=== PATIENT | male | born 1980 | race African-American/Black ===

== ENCOUNTER 2016-11-30 14:20 | Emergency (ER) | payer BC ==
[~2016-11-30] VITALS: Ht 175.3 cm; Wt 169.3 kg
[2016-11-30 14:26] VITALS: TEMP 36.9; Ht 175.3 cm; Wt 169.3 kg
[2016-11-30] MEDS ORDERED: ALBUTEROL HFA 8 GM INHALER INH STA (15:55)
[2016-11-30] MEDS ORDERED: AMOXICILLIN/CLAVULANATE TAB 875 MG TAB PO ONE (16:00)
[2016-11-30] MEDS ORDERED: PRED50TA PO (16:02)
[2016-11-30] MEDS ORDERED: AMOX875T PO (16:02)
--- NOTE | 2016-11-30 16:03 | EMERGENCY ROOM VISIT NOTE ---
ED Visit Note First contact with patient: 15:44 Chief Complaint: Extreme Congestion, Breathing Issues History of Present Illness: Patient is a 36-year-old male who presents the emergency Department this afternoon for evaluation of his ongoing his congestion and cough. The patient has a history of asthma as well as occasional episodes of sinusitis. He has had symptoms of sinus congestion for the past week. He started using Mucinex earlier this morning with minimal relief of symptoms. He also has been using his inhaler more frequently as well. He rates his current discomfort as a 0/10. He denies any headaches, dizziness, lightheadedness, blurry vision, double vision, nausea, vomiting, or neck pain/stiffness. Medications: Albuterol Allergies: Chocolate, citrus, shellfish PMH: Asthma SHx: Patient is a 36-year-old male who lives locally. ROS: All pertinent positive and negative review of systems are appropriately documented in the History of Present Illness. Physical Exam: VITAL SIGNS - Vital signs and nursing notes were reviewed. GENERAL - Well nourished, well developed 36-year-old male in no acute distress. Pt communicates well with provider and answers questions appropriately. SKIN - Without rash. HEAD - NC/AT with no obvious deformities. EYES - PERRL with EOMI bilaterally. Sclera without injection. Palpebral conjunctiva pink and moist. EARS - No deformities of external structures noted on gross examination bilaterally. No pain elicited with palpation of the tragus bilaterally. External auditory canals without discharge or otorrhea. Tympanic membranes pearly willis without retraction or bulging. No fluid or purulent material visualized behind the TM. Handle of malleus, umbo, cone of light, pars tensa/ flaccid all easily visualized. NOSE - Midline and without cyanosis. No purulent drainage noted. Nasal mucosa with mild mucus discharge. Tenderness to palpation appreciated over the bilateral maxillary sinuses. MOUTH/OROPHARYNX - Without perioral cyanosis. Buccal mucosa pink and moist and without leukoplakia. Tongue midline with equal elevation of palate bilaterally. No tonsillar hypertrophy, erythema, or exudates noted. Good dentition noted. NECK - Neck with FROM. Supple to palpation. No lymphadenopathy noted. No nuchal rigidity. LUNGS - Chest wall symmetric without accessory muscle use, intercostals retractions, or central cyanosis. Normal vesicular breath sounds CTA B/L. No wheezes, rales, or rhonchi appreciated. CARDIAC - RRR with S1/S2. No murmur, rubs, or gallops appreciated. ED Course: Patient was seen and evaluated by myself. I had a lengthy conversation with the patient regarding his symptoms. The patient will continue to use Mucinex at home. He was provided prednisone, Augmentin, and a refill of his upper on inhaler. He was instructed to follow-up with his primary care provider from today's visit. He was educated on worrisome symptoms for return visit to the emergency department. Patient discharged home afebrile and in good condition. In the evaluation and treatment of this patient, the following differential diagnoses were considered: Meningitis, encephalitis, viral URI, allergies, amongst others. Impression: Acute Sinusitis Discharge Instructions: You've been seen in the emergency department today for a sinus infection. You were prescribed Augmentin to be taken as prescribed. This is an antibiotic. All antibiotics have the potential to cause diarrhea. Stop this medication and contact a medical provider if you were to develop any significant adverse side effects including: wheezing, shortness of breath, passing out, vomiting, or a diffuse rash. Always take antibiotics as directed and COMPLETE the ENTIRE course regardless of the improvement of your symptoms. You have been prescribed Prednisone 50 mg to be taken orally once a day for the next 4 days. This is an anti-inflammatory medicine to be used to help minimize your symptoms. You should take the COMPLETE course of the medication. Use your albuterol inhaler as needed. For pain control, you can use the following tnbm-kah-pygjvqw medicines (if >12 yo): - Regular strength (325mg/tab) Tylenol (acetaminophen) 2 tabs every 4-6 hours as needed. Do not exceed 12 tablets in a 24 hour period. Avoid taking more than 4 grams (4000 mg) of Tylenol per day. This includes any other sources of acetaminophen you may take on a regular basis. - Regular strength (200 mg/tab) Advil (ibuprofen) 1-2 tabs every 4-6 hours as needed. Do not exceed a dose of 3200 mg per day. Follow-up with your primary care provider from today's visit. Return for any changing or worsening symptoms. Problem List Medical Problems: (1) Asthma Status: Chronic Current/Historical Medications Scheduled Amoxicillin & Pot Clavulanate (Augmentin 875-125 mg), 875 MG PO BID Prednisone (Prednisone), 50 MG PO DAILY Scheduled PRN Albuterol Hfa (Ventolin Hfa), 2 PUFFS INH Q6H PRN for SOB/Wheezing Allergies Coded Allergies: Shellfish (Unverified Allergy, Severe, GI SYMPTOMS, 07/22/16) Chocolate (Verified Allergy, Intermediate, "bad" eczema-like rash, ) [place] (Verified Allergy, Intermediate, "bad" eczema-like rash, 07/22/16) Vital Signs Date Time Temp Pulse Resp B/P Pulse Ox O2 Delivery O2 Flow Rate FiO2 11/30/16 16:20 96 20 142/91 94 11/30/16 14:26 36.9 99 20 165/95 95 Room Air Medications Administered Medications (Trade) Dose Ordered Sig/Shelley Route Start Time Stop Time Status Last Admin Dose Admin Amoxicillin/ Clavulanate Potassium (Augmentin Tab) 875 mg ONE ONCE PO 11/30/16 16:00 11/30/16 16:01 DC 11/30/16 16:12 875 MG Prednisone (PredniSONE TAB) 60 mg NOW STAT PO 11/30/16 15:55 11/30/16 15:56 DC 11/30/16 16:14 60 MG Albuterol (Ventolin Hfa Inhaler) 2 puffs ONE STAT INH 11/30/16 15:55 11/30/16 15:56 DC 11/30/16 16:13 2 PUFFS Departure Information Impression Primary Impression: Sinusitis Dispostion Home / Self-Care Condition GOOD Prescriptions Prednisone (Prednisone) 50 Mg Tab 50 MG PO DAILY for 4 Days, #4 TAB Prov: Sunny Doshi PA-C 11/30/16 Amoxicillin & Pot Clavulanate (Augmentin 875-125 mg) 1 Tab Tab 875 MG PO BID for 10 Days, #20 TAB Prov: Sunny Doshi PA-C 11/30/16 Referrals No Doctor, Assigned (PCP) Patient Instructions ED Sinusitis Abx Tx, My [facility] Additional Instructions You've been seen in the emergency department today for a sinus infection. You were prescribed Augmentin to be taken as prescribed. This is an antibiotic. All antibiotics have the potential to cause diarrhea. Stop this medication and contact a medical provider if you were to develop any significant adverse side effects including: wheezing, shortness of breath, passing out, vomiting, or a diffuse rash. Always take antibiotics as directed and COMPLETE the ENTIRE course regardless of the improvement of your symptoms. You have been prescribed Prednisone 50 mg to be taken orally once a day for the next 4 days. This is an anti-inflammatory medicine to be used to help minimize your symptoms. You should take the COMPLETE course of the medication. Use your albuterol inhaler as needed. For pain control, you can use the following lauq-mwe-yhbmgwj medicines (if >12 yo): - Regular strength (325mg/tab) Tylenol (acetaminophen) 2 tabs every 4-6 hours as needed. Do not exceed 12 tablets in a 24 hour period. Avoid taking more than 4 grams (4000 mg) of Tylenol per day. This includes any other sources of acetaminophen you may take on a regular basis. - Regular strength (200 mg/tab) Advil (ibuprofen) 1-2 tabs every 4-6 hours as needed. Do not exceed a dose of 3200 mg per day. Follow-up with your primary care provider from today's visit. Return for any changing or worsening symptoms. Problem Qualifiers Primary Impression: Sinusitis Sinusitis location: maxillary Chronicity: acute Recurrence: recurrent Qualified Codes: J01.01 - Acute recurrent maxillary sinusitis
[2016-11-30 16:20] VITALS: BP 142/91; PULSE 96; O2SAT 94
[2017-05-01] MEDS ORDERED: VNTHFA/IN INH (16:01)
== END 2016-11-30 16:22 | disposition home or self-care (01) ==
LOC: C.EDB 14:21 → C.EDD 16:22
DX: J01.90 Acute sinusitis, unspecified (principal); J45.909 Unspecified asthma, uncomplicated; Z91.018 Allergy to other foods

== ENCOUNTER 2017-05-01 21:13 | Emergency (ER) | payer BC ==
[~2017-05-01] VITALS: Ht 175.3 cm; Wt 166.2 kg
[~2017-05-01 21:13] MED LIST: VNTHFA/IN INH
[2017-05-01 21:22] VITALS: BP 167/107; PULSE 96; TEMP 37.1; O2SAT 96; Ht 175.3 cm; Wt 166.2 kg
--- NOTE | 2017-05-01 22:38 | DIAGNOSTIC IMAGING REPORT ---
LEFT ANKLE 3 VIEWS HISTORY: left ankle pain, injury, hx achilles surgery COMPARISON: Left ankle 12/20/2011. FINDINGS: There is no fracture or dislocation. Mild soft tissue swelling. Diffuse thickening of the Achilles tendon. No radiopaque foreign bodies. IMPRESSION: No fracture or dislocation within the left ankle. Diffuse thickening of the Achilles tendon suggestive of a chronic tendinosis. Electronically signed by: Feliciano Quiros M.D. 05/01/2017 10:37 PM Dictated Date/Time: 05/01/2017 10:34 PM
--- NOTE | 2017-05-01 22:59 | EMERGENCY ROOM VISIT NOTE ---
ED Visit Note First contact with patient: 22:02 CHIEF COMPLAINT: Ankle pain HISTORY OF PRESENT ILLNESS: This 37-year-old male patient presents to the emergency department ambulatory complaining of left ankle pain. The patient states that he stepped on a bottle and rolled his ankle. He is concerned because he had an Achilles surgery several years ago. The patient reports pain in the back of the ankle. He states that he iced the ankle at work without relief. The pain is radiating up his leg. He rates the discomfort a 7/10. He is able to bear weight but states it is painful to do so. He denies any numbness or weakness. He denies any foot pain. REVIEW OF SYSTEMS: A 6 system review of systems was completed with positives and pertinent negatives listed in the HPI. ALLERGIES: Chocolate, citrus, shellfish MEDICATIONS: Ventolin inhaler PMH: Asthma, Achilles surgery SOCIAL HISTORY: The patient lives locally with family. PHYSICAL EXAM: Vital Signs: Reviewed Nurse's notes, vital signs stable. GENERAL : This is a 37-year-old male, no acute distress, but appears in pain, well- developed, well-nourished. MENTAL STATUS: Alert, oriented to person place and time, and cooperative. MUSCULOSKELETAL: There is no significant swelling or deformity of the left ankle. There is tenderness to palpation at the distal Achilles insertion. Full range of motion of the ankle. Plantar flexion and dorsiflexion are 5/5. There is no tenderness over the foot. There is no calf or tibia/fibular tenderness. There is no visual deformity. The foot and toes are warm and well-perfused. Dorsalis pedis pulse 2+. Sensation to pain and light touch is intact. Capillary refill less than 2 seconds. RADIOGRAPHIC FINDINGS: LEFT ANKLE 3 VIEWS HISTORY: left ankle pain, injury, hx achilles surgery COMPARISON: Left ankle 12/20/2011. FINDINGS: There is no fracture or dislocation. Mild soft tissue swelling. Diffuse thickening of the Achilles tendon. No radiopaque foreign bodies. IMPRESSION: No fracture or dislocation within the left ankle. Diffuse thickening of the Achilles tendon suggestive of a chronic tendinosis. EMERGENCY DEPARTMENT COURSE: I examined the patient. X-rays of the left ankle were reviewed by myself and read by radiology and reveal no acute findings. Patient has crutches at home and will use these until he is able to weight without difficulty. I did recommend that the patient follow-up with orthopedics this week due to his history of Achilles surgery. Conservative measures were discussed. He verbalized understanding of my assessment and treatment plan. The patient was discharged home in good condition. Medication reconciliation: I attest that I have personally reviewed the patient 's current medication list. Blood Pressure Screening: Patient was found to have a slightly elevated blood pressure due to circumstances. I do not believe that the patient requires hypertension monitoring. DIAGNOSIS: Left ankle pain Problem List Medical Problems: (1) Asthma Status: Chronic Current/Historical Medications Scheduled PRN Albuterol Hfa (Ventolin Hfa), 2 PUFFS INH Q6H PRN for SOB/Wheezing Allergies Coded Allergies: Shellfish (Unverified Allergy, Severe, GI SYMPTOMS, 07/22/16) Chocolate (Verified Allergy, Intermediate, "bad" eczema-like rash, ) [place] (Verified Allergy, Intermediate, "bad" eczema-like rash, 07/22/16) Vital Signs Date Time Temp Pulse Resp B/P (MAP) Pulse Ox O2 Delivery O2 Flow Rate FiO2 05/01/17 21:22 37.1 96 20 167/107 96 Room Air Departure Information Impression Primary Impression: Ankle injury Dispostion Home / Self-Care Condition GOOD Referrals No Doctor, Assigned (PCP) Michele Fernandez D.Rajendra. Patient Instructions My [facility] Additional Instructions You have been treated in the Emergency Department for an Ankle injury. For pain control, you can use the following tjcp-upa-hskryjt medicines (if >12 yo): - Regular strength (325mg/tab) Tylenol (acetaminophen) 2 tabs every 4-6 hours as needed. Do not exceed 12 tablets in a 24 hour period. Avoid taking more than 4 grams (4000 mg) of Tylenol per day. This includes any other sources of acetaminophen you may take on a regular basis. - Regular strength (200 mg/tab) Advil (ibuprofen) 1-2 tabs every 4-6 hours as needed. Do not exceed a dose of 3200 mg per day. If this is a recent injury (<24 hrs), ice can be applied to the area of pain for the first 3 days to help decrease pain and inflammation. You should use the crutches to keep weight off the ankle for the next 3-4 days or until you're able to bear weight without any pain. Call Dr. Fernandez to schedule follow-up if you have any pain or difficulty walking in 2-3 days. Return to the Emergency Department if your current symptoms worsen despite treatment course outlined above, or if you develop any of the following symptoms : intractable pain despite aforementioned treatment course or new onset of numbness or tingling of the foot. Problem Qualifiers Primary Impression: Ankle injury Encounter type: initial encounter Laterality: left Qualified Codes: S99.912A - Unspecified injury of left ankle, initial encounter
== END 2017-05-01 23:06 | disposition home or self-care (01) ==
LOC: C.EDB 21:16 → C.EDD 23:06
DX: S99.912A Unspecified injury of left ankle, initial encounter (principal); X50.0XXA Overexertion from strenuous movement or load, initial encounter; J45.909 Unspecified asthma, uncomplicated

== ENCOUNTER 2017-10-22 21:40 | Emergency (ER) | payer BC ==
[~2017-10-22] VITALS: Ht 175.3 cm; Wt 167.3 kg
[2017-10-22 21:44] VITALS: Ht 175.3 cm; Wt 167.3 kg
[2017-10-22] MEDS ORDERED: SODIUM CHLORIDE 0.9% 1000ML 1,000 ML IV ONE (22:03)
[2017-10-22] MEDS ORDERED: SODIUM CHLORIDE 0.9% 1000ML 1,000 ML IV STA (22:03)
--- NOTE | 2017-10-22 22:04 | EMERGENCY ROOM VISIT NOTE ---
History Report prepared by Connor: Nicola Sterling Under the Supervision of: Dr. Tomer Oneal M.D. First contact with patient: 21:52 Chief Complaint: HEADACHE Stated Complaint: POSSIBLY DEHYDRATION,HEADACHE,BLURRY VISION History of Present Illness The patient is a 37 year old male who presents to the Emergency Room with complaints of bilateral blurry vision that started 2 hours ago. He normally does not wear glasses and had difficulty looking at his work schedule on his computer screen today. He states he has a mild left sided temporal headache rated as 3/10 in severity. He denies previous episodes. The patient denies head strike, ear pain, neck pain, back pain, weight loss or gain, fevers, numbness, weakness, chest pain, SOB, and abdominal pain. He denies a history of diabetes and has not been checked for diabetes. Of note, he does not have a regular PCP that he follows up with. Source of History: patient Onset: 2 hours ago Position: head, eye (bilateral) Symptom Intensity: headache rated as 3/10 Quality: other (blurry vision) Timing: constant Associated Symptoms: + headache, No fevers, No neck pain, No chest pain, No SOB, No abdominal pain, No back pain, No weakness, No numbness Review of Systems See HPI for pertinent positives & negatives. A total of 10 systems reviewed and were otherwise negative. Past Medical & Surgical Medical Problems: (1) Asthma Surgical Problems: (1) History of left knee surgery Old medical records were reviewed. Nurse's notes were reviewed and I agree with. Family History FH: heart disease FHx: cancer FHx: hypertension FHx: lung disease No significant family history Thyroid problem Social History Smoking Status: Current Some Day Smoker Alcohol Use: occasionally Marital Status: single Housing Status: lives with family Occupation Status: employed Current/Historical Medications Scheduled PRN Albuterol Hfa (Ventolin Hfa), 2 PUFFS INH Q6H PRN for SOB/Wheezing Allergies Coded Allergies: Shellfish (Unverified Allergy, Severe, GI SYMPTOMS, 07/22/16) Chocolate (Verified Allergy, Intermediate, "bad" eczema-like rash, ) [place] (Verified Allergy, Intermediate, "bad" eczema-like rash, 07/22/16) Physical Exam Vital Signs Date Time Temp Pulse Resp B/P (MAP) Pulse Ox O2 Delivery O2 Flow Rate FiO2 10/22/17 23:46 37.0 88 16 124/72 98 Room Air 10/22/17 22:50 90 16 126/73 97 Room Air 10/22/17 21:44 37.4 96 20 158/105 95 Room Air Physical Exam General: Non-ill appearing young male in no acute distress. HEENT: Normal cephalic atraumatic. Pupils are equal round and reactive to light. Extraocular movements are intact. Oropharynx is pink with moist mucous membranes. No swelling of the mouth lips or tongue. Neck: Supple with a midline trachea. No meningeal signs or stiffness, no JVD or bruits. No Stridor. Chest: Clear to auscultation bilaterally. No wheezes or rhonchi. No increased work of breathing. Heart: regular rate and rhythm. Abdomen: Soft nontender, nondistended without rebound guarding or rigidity. Extremities: No cyanosis clubbing or edema. No calf tenderness or assymetry Spine/Back. Non tender to palpation. No CVA tenderness Skin: Good turgor without rashes. Neurologic exam: Cranial nerves two through 12 are intact. Motor and sensation are intact and symmetrical throughout. Medical Decision & Procedures ER Provider Diagnostic Interpretation: Radiology results as stated below per my review and radiologist interpretation: HEAD WITHOUT CONTRAST (CT) CT DOSE: 651.12 mGy.cm HISTORY: Mental status change headache, blurry vision TECHNIQUE: Multiaxial CT images of the head were performed without the use of intravenous contrast. A dose lowering technique was utilized adhering to the principles of ALARA. Comparison: 01/07/2008 Findings: Moderate mucosal thickening frontal sinuses. The calvarium and skull base are intact. The ventricles and sulci are within normal limits. There is no mass, hematoma, midline shift, or acute infarct. Impression: Moderate mucosal thickening of the frontal sinuses. No acute intracranial abnormality. The above report was generated using voice recognition software. It may contain grammatical, syntax or spelling errors. Electronically signed by: Aquiles Haley M.D. 10/22/2017 10:42 PM Dictated Date/Time: 10/22/2017 10:41 PM Laboratory Results 10/22/17 22:15 Red Blood Count 5.13, Mean Corpuscular Volume 91.2, Mean Corpuscular Hemoglobin 31.0, Mean Corpuscular Hemoglobin Concent 34.0, Mean Platelet Volume 9.6, Neutrophils (%) (Auto) 51.8, Lymphocytes (%) (Auto) 37.3, Monocytes (%) (Auto) 7.1, Eosinophils (%) (Auto) 2.8, Basophils (%) (Auto) 0.3, Neutrophils # (Auto) 3.12, Lymphocytes # (Auto) 2.25, Monocytes # (Auto) 0.43, Eosinophils # (Auto) 0.17, Basophils # (Auto) 0.02 10/22/17 22:15 Test 10/22/17 22:15 White Blood Count 6.03 K/uL (4.8-10.8) Red Blood Count 5.13 M/uL (4.7-6.1) Hemoglobin 15.9 g/dL (14.0-18.0) Hematocrit 46.8 % (42-52) Mean Corpuscular Volume 91.2 fL (80-100) Mean Corpuscular Hemoglobin 31.0 pg (25-34) Mean Corpuscular Hemoglobin Concent 34.0 g/dl (32-36) Platelet Count 294 K/uL (130-400) Mean Platelet Volume 9.6 fL (7.4-10.4) Neutrophils (%) (Auto) 51.8 % Lymphocytes (%) (Auto) 37.3 % Monocytes (%) (Auto) 7.1 % Eosinophils (%) (Auto) 2.8 % Basophils (%) (Auto) 0.3 % Neutrophils # (Auto) 3.12 K/uL (1.4-6.5) Lymphocytes # (Auto) 2.25 K/uL (1.2-3.4) Monocytes # (Auto) 0.43 K/uL (0.11-0.59) Eosinophils # (Auto) 0.17 K/uL (0-0.5) Basophils # (Auto) 0.02 K/uL (0-0.2) RDW Standard Deviation 41.5 fL (36.4-46.3) RDW Coefficient of Variation 12.4 % (11.5-14.5) Immature Granulocyte % (Auto) 0.7 % Immature Granulocyte # (Auto) 0.04 K/uL (0.00-0.02) Anion Gap 9.0 mmol/L (3-11) Est Creatinine Clear Calc Drug Dose 132.9 ml/min Estimated GFR () 90.3 Estimated GFR (Non- 77.9 BUN/Creatinine Ratio 10.8 (10-20) Calcium Level 9.1 mg/dl (8.5-10.1) Total Bilirubin 0.5 mg/dl (0.2-1) Direct Bilirubin 0.2 mg/dl (0-0.2) Aspartate Amino Transf (AST/SGOT) 25 U/L (15-37) Alanine Aminotransferase (ALT/SGPT) 56 U/L (12-78) Alkaline Phosphatase 89 U/L (45-117) Total Protein 8.5 gm/dl (6.4-8.2) Albumin 4.5 gm/dl (3.4-5.0) Lipase 273 U/L (73-393) Laboratory studies as stated above per my review. Medications Administered Medications (Trade) Dose Ordered Sig/Shelley Route Start Time Stop Time Status Last Admin Dose Admin Sodium Chloride 1,000 ml @ 999 mls/hr Q1H1M STAT IV 10/22/17 22:03 10/22/17 23:03 DC 10/22/17 22:49 999 MLS/HR Sodium Chloride 1,000 ml @ 150 mls/hr Q6H40M ONCE IV 10/22/17 22:03 10/23/17 00:19 DC 10/22/17 22:58 150 MLS/HR Ketorolac Tromethamine (Toradol Inj) 30 mg NOW STAT IV 10/22/17 23:28 10/22/17 23:29 DC 10/22/17 23:43 30 MG ED Course 2151: Past medical records reviewed. The patient was evaluated in room C1B, and a complete history and physical examination were performed. 2203: Sodium Chloride 1000 ml @ 150 mls/hr IV. 2203: Sodium Chloride 1000 ml @ 999 mls/hr IV. 2321: I checked on the patient and he is resting comfortably. He states that his headache has improved. He will see an eye doctor to see if he needs eye glasses. 2328: Toradol Inj, 30 mg, IV. 2330: Upon reevaluation, the patient is doing well. I discussed the results and treatment plan with the patient. He verbalized agreement of the treatment plan. The patient was discharged home. Medical Decision Differential diagnoses include migraine, intracranial process, dehydration, diabetes, electrolytic and metabolic abnormality. This patient comes in as described above he has a faint left sided headache that is only about 3 out of 10 he feels his vision is a little blurry in both eyes more so on the left. He has not really noticed this before he looks well has no other complaints. Has had no trauma. Is no neurologic deficits. Is no neck pain or stiffness or fever chills or any infectious type symptoms. Blood work was obtained as well as a CAT scan of his head. He has no white count or fever to suggest infection. Not anemic. His electrolytes look good and there is nothing to suggest diabetes. He does have some sinus disease in the frontal sinuses. He tells me this is chronic and has no symptoms to suggest acute sinus problems. His visual acuity was mildly off in both eyes. He he thinks he may just need glasses. Possibles could be a migraine. At this point there is nothing to suggest infection or significant intracranial process. His eye exam looks normal. He has no proptosis. He has no injection of the sclera. The pupils are normal and there is no hyphema. Extraocular movements are intact. He was given Toradol IV here. He will be discharged home. he will rest and drink plenty of fluids. use ibuprofen pain. return if: increasing pain , worsening of symptoms, any new problems or concerns. He is happy with the plan and discharged to home. Medication Reconcilliation Current Medication List: was personally reviewed by me Blood Pressure Screening Patient's blood pressure: Elevated blood pressure Blood pressure disposition: Elevated BP felt to be situational Impression Primary Impression: Headache Scribe Attestation The scribe's documentation has been prepared under my direction and personally reviewed by me in its entirety. I confirm that the note above accurately reflects all work, treatment, procedures, and medical decision making performed by me. Departure Information Dispostion Home / Self-Care Referrals No Doctor, Assigned (PCP) Patient Instructions My [facility] Additional Instructions Rest. Drink plenty of fluids. May use ibuprofen 400 mg every 6 hours, take with food Follow-up with your doctor this week for recheck. Also follow-up with an eye doctor. Can call Dr. Woodall's office (Eye doctor) on Wednesday to get seen this week Return if: Increasing pain, fever or chills, change in vision or worsening vision, any new problems or concerns
[2017-10-22 22:35] LABS: BASO % 0.3 %; BASO ABS # 0.02 K/uL (0-0.2); EOS % 2.8 %; EOS ABS # 0.17 K/uL (0-0.5); HEMATOCRIT 46.8 % (42-52); HEMOGLOBIN 15.9 g/dL (14.0-18.0); IG# 0.04 K/uL (0.00-0.02); LYMPH % 37.3 %; LYMPH ABS # 2.25 K/uL (1.2-3.4); MEAN CELL VOLUME 91.2 fL (80-100); MEAN PLATELET VOLUME 9.6 fL (7.4-10.4); MONO % 7.1 %; MONO ABS # 0.43 K/uL (0.11-0.59); NEUT % 51.8 %; NEUT ABS # 3.12 K/uL (1.4-6.5); PLATELET COUNT 294 K/uL (130-400); RED CELL DISTRIBUTION WIDTH CV 12.4 % (11.5-14.5); RED CELL DISTRIBUTION WIDTH SD 41.5 fL (36.4-46.3); WHITE BLOOD COUNT 6.03 K/uL (4.8-10.8)
--- NOTE | 2017-10-22 22:43 | DIAGNOSTIC IMAGING REPORT ---
HEAD WITHOUT CONTRAST (CT) CT DOSE: 651.12 mGy.cm HISTORY: Mental status change headache, blurry vision TECHNIQUE: Multiaxial CT images of the head were performed without the use of intravenous contrast. A dose lowering technique was utilized adhering to the principles of ALARA. Comparison: 01/07/2008 Findings: Moderate mucosal thickening frontal sinuses. The calvarium and skull base are intact. The ventricles and sulci are within normal limits. There is no mass, hematoma, midline shift, or acute infarct. Impression: Moderate mucosal thickening of the frontal sinuses. No acute intracranial abnormality. The above report was generated using voice recognition software. It may contain grammatical, syntax or spelling errors. Electronically signed by: Aquiles Haley M.D. 10/22/2017 10:42 PM Dictated Date/Time: 10/22/2017 10:41 PM
[2017-10-22 22:44] LABS: ALBUMIN 4.5 gm/dl (3.4-5.0); CALCIUM 9.1 mg/dl (8.5-10.1); CREATININE 1.2 mg/dl (0.60-1.40); POTASSIUM 3.6 mmol/L (3.5-5.1)
[2017-10-22 22:47] LABS: TOTAL PROTEIN 8.5 gm/dl (6.4-8.2)
[2017-10-22] MEDS ORDERED: KETOROLAC TROMETHAMINE 30 MG/ML VIAL IV STA (23:28)
[2017-10-22 23:46] VITALS: BP 124/72; PULSE 88; TEMP 37; O2SAT 98
== END 2017-10-22 23:47 | disposition home or self-care (01) ==
LOC: C.EDB 21:42 → C.EDC 23:47
DX: R51 Headache (principal); J45.909 Unspecified asthma, uncomplicated; F17.200 Nicotine dependence, unspecified, uncomplicated; Z82.49 Family history of ischemic heart disease and other diseases of the circulatory system; Z91.013 Allergy to seafood; Z91.018 Allergy to other foods